=== PATIENT | female | born 1960 ===

== ENCOUNTER 2025-07-01 13:41 | Emergency (ER) | payer BC, MEDICARE ==
[~2025-07-01] VITALS: Ht 152.4 cm; Wt 56.8 kg
[2025-07-01 13:56] VITALS: TEMP 98
[2025-07-01 15:11] LABS: PLATELET COUNT (AUTO) 327 K/uL (150-450); RED BLOOD CELL COUNT(AUTO) 3.97 MIL/uL (4.00-5.20); RED CELL DISTRIBUTION WIDTH 12.6 % (11.5-14.5); WHITE BLOOD COUNT (AUTO) 6.2 K/uL (4.5-11.0)
[2025-07-01] MEDS: SODIUM CHLORIDE 0.9% 2,000 ML IV ONE (15:15)
[2025-07-01] MEDS: MORPHINE SULFATE 4 MG/ML SYRINGE IVP ONE (15:15)
[2025-07-01] MEDS: ONDANSETRON HCL 4 MG/2 ML VIAL IVP ONE (15:15)
[2025-07-01 15:25] LABS: CALCIUM, TOTAL 8.9 mg/dL (8.8-10.5); CREATININE 0.61 mg/dL (0.60-1.30); GLOMERULAR FILTR. RATE CALC > 60 mL/min (>60); GLUCOSE,RANDOM 143 mg/dL (70-110); SODIUM SERUM 137 mmol/L (136-145); UREA NITROGEN, BLOOD 18 mg/dL (7-18)
[2025-07-01 15:26] LABS: ASPARTATE AMINOTRANSFERASE 19 U/L (15-37); TOTAL PROTEIN, SERUM 7.5 g/dL (6.4-8.2)
[2025-07-01 15:29] LABS: LACTIC ACID 1.0 mmol/L (0.4-2.0)
[2025-07-01 15:34] LABS: TROPONIN I-HIGH SENSITIVITY 5 ng/L (<51)
[2025-07-01 16:18] VITALS: BP 143/77; PULSE 62; RESP 16; O2SAT 98
[2025-07-01 17:48] LABS: APPEARANCE,URINE CLEAR (CLEAR); GLUCOSE, URINE (UA) NEGATIVE (NEGATIVE); LEUKOCYTE ESTERASE ,URINE NEGATIVE (NEGATIVE); NITRATE,URINE NEGATIVE (NEGATIVE); OCCULT BLOOD,URINE NEGATIVE (NEGATIVE); SPECIFIC GRAVITIY, URINE 1.013 (1.003-1.030)
== END 2025-07-01 21:41 | disposition short-term general hospital (02) ==
LOC: EMS 13:41
DX: K85.90 Acute pancreatitis without necrosis or infection, unspecified (principal); R10.10 Upper abdominal pain, unspecified; E11.9 Type 2 diabetes mellitus without complications; E78.00 Pure hypercholesterolemia, unspecified; I10 Essential (primary) hypertension; J45.909 Unspecified asthma, uncomplicated; Z91.013 Allergy to seafood
CPT/HCPCS: 99285; 96374; 76700; 96361; 71045; 80048; 80076; 81003; 83605; 83690; 84484; 85025; 93005; 36415; J2405; J7030